=== PATIENT | male | born 1965 | race Two or more races ===

== ENCOUNTER 2023-09-08 08:53 | Emergency (ER) | payer MEDICAID, OTHER ==
[~2023-09-08] VITALS: Ht 157.5 cm; Wt 60.1 kg
[2023-09-08 09:26] VITALS: BP 123/78; PULSE 87; RESP 18; TEMP 98.4; O2SAT 100
[2023-09-08] MEDS ORDERED: IBUP1TAB5 PO (10:52)
== END 2023-09-08 11:08 | disposition home or self-care (01) ==
LOC: ER 09:08
DX: M70.42 Prepatellar bursitis, left knee (principal)
CPT/HCPCS: 73562